=== PATIENT | male | born 1950 | race Caucasian/White ===

== ENCOUNTER → 2021-08-03 | Outpatient (CLI) | payer MEDICARE ==
[~2021-08-03] MED LIST: ATORVASTATIN CA20 MG PO; CELEBREX200 MG PO; COZAAR50 MG PO; IBUPROFEN600 MG PO; LISINOPRIL20 MG PO; NAPROSYN EC 37375 MG PO; TOPIRAMATE25 MG PO; TRAMADOL HCL50 MG PO; VIBRAMYCIN100 MG PO; XANAFLEX PO
== END ==
LOC: KOH-I 11:30
DX: F17.210 Nicotine dependence, cigarettes, uncomplicated (principal)
CPT/HCPCS: 71271

== ENCOUNTER → 2021-08-09 | Outpatient (CLI) | payer MEDICARE | LOC: KOH-I 07-23 10:15 | DX: Z13.6 Encounter for screening for cardiovascular disorders (principal); I77.811 Abdominal aortic ectasia | CPT/HCPCS: 76706-PO ==

== ENCOUNTER → 2022-02-24 | Outpatient (CLI) | payer MEDICARE | LOC: US 08:00 | DX: R59.0 Localized enlarged lymph nodes (principal); E04.2 Nontoxic multinodular goiter | CPT/HCPCS: 76536 ==